=== PATIENT | female | born 1960 | race Caucasian/White ===

== ENCOUNTER 2018-01-27 23:45 | Emergency (ER) | payer OTHER ==
--- NOTE | 2018-01-28 00:10 | EDPHY ---
H & P Stated Complaint: "FEEL LIKE I'M GOING TO PASS OUT" DIZZY Time Seen by Provider: 01/28/18 00:10 HPI/ROS: HPI CHIEF COMPLAINT: Dizziness now resolved HISTORY OF PRESENT ILLNESS: Very pleasant 57-year-old female, denies having any significant medical history presents emergency room with dizziness. She describes the room spinning. This started at 8:30 a.m. It is now 12 30 at night. She states she was sitting at the computer playing [employer] when this started. Did not have any chest pain or shortness of breath. She did vomit 1 time. The symptoms have since resolved. She states it resolved approximately half an hour ago. It was worse when she went from a lying down to seated position. Denies headache or neck pain, denies double vision, denies visual disturbance, denies chest pain or shortness of breath. Did have nausea with it. She has never had this before. Past Medical History: Denies significant medical history except for thyroid disease Past Surgical History: Denies recent surgical history Social History: Denies drugs alcohol tobacco. Family History: Noncontributory ROS REVIEW OF SYSTEMS: 10 Systems were reviewed and negative with the exception of the elements mentioned in the history of present illness. Exam Constitutional nontoxic no acute distress, triage nursing summary reviewed, vital signs reviewed, awake/alert. Eyes normal conjunctivae and sclera, EOMI, PERRLA. HENT normal inspection, atraumatic, moist mucus membranes, no epistaxis, neck supple/ no meningismus, no raccoon eyes. Respiratory clear to auscultation bilaterally, normal breath sounds, no respiratory distress, no wheezing. Cardiovascular rate normal, regular rhythm, no murmur, no edema, distal pulses normal. Gastrointestinal soft, non-tender, no rebound, no guarding, normal bowel sounds, no distension, no pulsatile mass. Genitourinary no CVA tenderness. Musculoskeletal no midline vertebral tenderness, full range of motion, no calf swelling, no tenderness of extremities, no meningismus, good pulses, neurovascularly intact. Skin pink, warm, & dry, no rash, skin atraumatic. Neurologic unremarkable neurological exam, awake, alert and oriented x 3, AAOx3 , moves all 4 extremities equally, motor intact, sensory intact, CN II-XII intact, normal cerebellar, normal vision, normal speech. Psychiatric normal mood/affect. Heme/Lymph/Immune no lymphadenopathy. Differential Diagnosis: Includes but is not limited to in a particular order vertigo, dizziness, dehydration, electrolyte disturbance, cardiac arrhythmia, ACS, stroke Medical Decision Making: Plan for this patient IV establishment IV fluid bolus , EKG, troponin, chest x-ray, CT scan head without contrast, electrolytes, urinalysis, and re-evaluate. Re-evaluation: EKG interpretation by me on record in [employer] system. Impression time of EKG 0015: Sinus rhythm rate of 84. No signs of cardiac arrhythmia acute ischemia. Intervals are appropriate. Troponin 0.01. EKG nonischemic. ED x-ray chest one view negative for acute cardiopulmonary disease. Image interpreted by myself. CT scan head without contrast called to me by Dr. Lynn. Reason for CT scan head without contrast dizziness. Negative for acute bleed. EKG interpretation by me on record in [employer] system. Impression time of repeat EKG 4 6:00 a.m., sinus rhythm rate of 85 without any signs of ischemia. No ST elevation no ST depression or T-wave abnormalities. Patient re-evaluated 4:00 a.m.: She is resting comfortably she denies any complaints, denies dizziness, denies chest pain, denies shortness of breath, denies room spinning. States she feels well. She is eager to be discharged requesting discharge. Repeat troponin 0.01. Unchanged from previous troponin. 0421: Patient ambulated well throughout the emergency room without any difficulty. Stable gait. Denies dizziness. Denies chest pain or shortness of breath eager for discharge home. Return precautions discussed. Prescription for meclizine. Return if worsening dizziness, headache, vomiting or not doing well she understands. Source: Patient - Personal History Current Tetanus Diphtheria and Acellular Pertussis (TDAP): Yes - Medical/Surgical History Hx Asthma: No Hx Chronic Respiratory Disease: No Hx Diabetes: No Hx Cardiac Disease: No Hx Renal Disease: No Hx Cirrhosis: No Hx Alcoholism: No Hx HIV/AIDS: No Hx Splenectomy or Spleen Trauma: No Other PMH: THYROID REMOVAL - Social History Smoking Status: Never smoked Constitutional: Initial Vital Signs Heart Rate 94 01/27/18 23:50 Respiratory Rate 16 01/27/18 23:50 Blood Pressure 134/89 H 01/27/18 23:50 O2 Sat (%) 97 01/27/18 23:50 O2 Delivery Mode Room Air Allergies/Adverse Reactions: No Known Allergies Allergy (Verified 01/27/18 23:52) Home Medications: Medication Instructions Recorded [place] Thyroid 60 MG (*) 1 tab BID 03/24/16 Multivitamin (*) 1 tab DAILY 03/24/16 Meclizine HCl [Meclizine HCl 25 mg 25 mg PO BID #14 tab 01/28/18 (RX,OTC)] Medical Decision Making - Data Points Laboratory Results: Laboratory Results 01/28/18 00:09 01/28/18 00:09 01/28/18 01/28/18 01/28/18 04:06 01:45 00:13 WBC RBC Hgb Hct MCV MCH MCHC RDW Plt Count MPV Neut % (Auto) Lymph % (Auto) [place] % (Auto) Eos % (Auto) Baso % (Auto) Nucleat RBC Rel Count Absolute Neuts (auto) Absolute Lymphs (auto) Absolute Monos (auto) Absolute Eos (auto) Absolute Basos (auto) Absolute Nucleated RBC Immature Gran % Immature Gran # PT INR APTT Sodium Potassium Chloride Carbon Dioxide Anion Gap BUN Creatinine Estimated GFR Glucose Calcium Magnesium Total Bilirubin Conjugated Bilirubin Unconjugated Bilirubin AST ALT Alkaline Phosphatase POC Troponin I 0.01 ng/mL ng/mL 0.01 ng/mL ng/mL (0.00-0.08) (0.00-0.08) Total Protein Albumin Lipase Urine Color YELLOW Urine Appearance HAZY Urine pH 5.0 (5.0-7.5) Ur Specific [place] 1.027 (1.002-1.030) Urine Protein NEGATIVE (NEGATIVE) Urine Ketones TRACE H (NEGATIVE) Urine Blood NEGATIVE (NEGATIVE) Urine Nitrate NEGATIVE (NEGATIVE) Urine Bilirubin NEGATIVE (NEGATIVE) Urine Urobilinogen 4.0 EU H EU (0.2-1.0) Ur Leukocyte Esterase NEGATIVE (NEGATIVE) Urine Glucose NEGATIVE (NEGATIVE) 01/28/18 01/28/18 01/28/18 00:09 00:09 00:09 WBC RBC Hgb Hct MCV MCH MCHC RDW Plt Count MPV Neut % (Auto) Lymph % (Auto) [place] % (Auto) Eos % (Auto) Baso % (Auto) Nucleat RBC Rel Count Absolute Neuts (auto) Absolute Lymphs (auto) Absolute Monos (auto) Absolute Eos (auto) Absolute Basos (auto) Absolute Nucleated RBC Immature Gran % Immature Gran # PT 12.4 SEC SEC (12.0-15.0) INR 0.90 (0.83-1.16) APTT 24.3 SEC SEC (23.0-38.0) Sodium 142 mEq/L mEq/L (135-145) Potassium 3.8 mEq/L mEq/L (3.3-5.0) Chloride 107 mEq/L mEq/L (97-110) Carbon Dioxide 23 mEq/l mEq/l (22-31) Anion Gap 12 mEq/L mEq/L (8-16) BUN 14 mg/dL mg/dL (7-23) Creatinine 0.6 mg/dL mg/dL (0.6-1.0) Estimated GFR > 60 Glucose 133 mg/dL H mg/dL (70-100) Calcium 9.4 mg/dL mg/dL (8.5-10.4) Magnesium 1.8 mg/dL mg/dL (1.6-2.3) Total Bilirubin 0.2 mg/dL mg/dL (0.1-1.4) Conjugated Bilirubin 0.0 mg/dL mg/dL (0.0-0.5) Unconjugated Bilirubin 0.2 mg/dL mg/dL (0.0-1.1) AST 32 IU/L IU/L (14-46) ALT 38 IU/L IU/L (9-52) Alkaline Phosphatase 87 IU/L IU/L (38-126) POC Troponin I Total Protein 7.3 g/dL g/dL (6.3-8.2) Albumin 4.0 g/dL g/dL (3.5-5.0) Lipase 293 IU/L IU/L (23-300) Urine Color Urine Appearance Urine pH Ur Specific [place] Urine Protein Urine Ketones Urine Blood Urine Nitrate Urine Bilirubin Urine Urobilinogen Ur Leukocyte Esterase Urine Glucose 01/28/18 00:09 WBC 6.01 10^3/uL 10^3/uL (3.80-9.50) RBC 4.34 10^6/uL 10^6/uL (4.18-5.33) Hgb 11.3 g/dL L g/dL (12.6-16.3) Hct 34.7 % L % (38.0-47.0) MCV 80.0 fL L fL (81.5-99.8) MCH 26.0 pg L pg (27.9-34.1) MCHC 32.6 g/dL g/dL (32.4-36.7) RDW 17.1 % H % (11.5-15.2) Plt Count 348 10^3/uL 10^3/uL (150-400) MPV 9.8 fL fL (8.7-11.7) Neut % (Auto) 39.1 % L % (39.3-74.2) Lymph % (Auto) 44.3 % % (15.0-45.0) [place] % (Auto) 9.8 % % (4.5-13.0) Eos % (Auto) 5.8 % % (0.6-7.6) Baso % (Auto) 0.8 % % (0.3-1.7) Nucleat RBC Rel Count 0.0 % % (0.0-0.2) Absolute Neuts (auto) 2.35 10^3/uL 10^3/uL (1.70-6.50) Absolute Lymphs (auto) 2.66 10^3/uL 10^3/uL (1.00-3.00) Absolute Monos (auto) 0.59 10^3/uL 10^3/uL (0.30-0.80) Absolute Eos (auto) 0.35 10^3/uL 10^3/uL (0.03-0.40) Absolute Basos (auto) 0.05 10^3/uL 10^3/uL (0.02-0.10) Absolute Nucleated RBC 0.00 10^3/uL 10^3/uL (0-0.01) Immature Gran % 0.2 % % (0.0-1.1) Immature Gran # 0.01 10^3/uL 10^3/uL (0.00-0.10) PT INR APTT Sodium Potassium Chloride Carbon Dioxide Anion Gap BUN Creatinine Estimated GFR Glucose Calcium Magnesium Total Bilirubin Conjugated Bilirubin Unconjugated Bilirubin AST ALT Alkaline Phosphatase POC Troponin I Total Protein Albumin Lipase Urine Color Urine Appearance Urine pH Ur Specific [place] Urine Protein Urine Ketones Urine Blood Urine Nitrate Urine Bilirubin Urine Urobilinogen Ur Leukocyte Esterase Urine Glucose Medications Given: Discontinued Medications Sodium Chloride (Ns) 1,000 mls @ 0 mls/hr IV EDNOW ONE; Wide Open PRN Reason: Protocol Stop: 01/28/18 00:24 Last Admin: 01/28/18 00:29 Dose: 1,000 mls Point of Care Test Results: Chemistry 01/28/18 01/28/18 04:06 00:13 POC Troponin I 0.01 ng/mL ng/mL 0.01 ng/mL ng/mL (0.00-0.08) (0.00-0.08) Departure - Departure Disposition: Home, Routine, Self-Care Clinical Impression: Dizziness Condition: Good Instructions: Vertigo (ED), Dizziness (ED) Additional Instructions: 1. Please return to the emergency room if you develop worsening dizziness, headache, vomiting or not doing well. Referrals: NONE *PRIMARY CARE P,. [Primary Care Provider] - As per Instructions Prescriptions: Meclizine HCl [Meclizine HCl 25 mg (RX,OTC)] 25 mg PO BID #14 tab
[2018-01-28 00:18] LABS: PLATELET COUNT 348 10^3/uL (150-400)
[2018-01-28] MEDS ORDERED: NS 1,000 ML IV ONE (00:23)
[2018-01-28 00:39] LABS: INR 0.9 (0.83-1.16); PROTIME(PATIENT) 12.4 SEC (12.0-15.0)
[2018-01-28] MEDS ORDERED: ONDANSETRON 4MG PREPACK#2 BTL TAKEHOME ONE ×2 (04:27)
[2018-01-28 04:40] VITALS: BP 136/98
--- NOTE | 2018-01-28 05:47 | CPEKG ---
Test Reason : OPEN Blood Pressure : / mmHG Vent. Rate : 084 BPM Atrial Rate : 084 BPM P-R Int : 182 ms QRS Dur : 111 ms QT Int : 399 ms P-R-T Axes : 043 003 052 degrees QTc Int : 472 ms Sinus rhythm Confirmed by Kraig Hunter ([id number]) on 01/28/2018 5:47:05 AM Referred By: Confirmed By:Kraig Hunter
--- NOTE | 2018-01-28 05:48 | CPEKG ---
Test Reason : OPEN Blood Pressure : / mmHG Vent. Rate : 085 BPM Atrial Rate : 085 BPM P-R Int : 187 ms QRS Dur : 105 ms QT Int : 400 ms P-R-T Axes : 039 004 048 degrees QTc Int : 476 ms Sinus rhythm Confirmed by Kraig Hunter ([id number]) on 01/28/2018 5:47:06 AM Referred By: Confirmed By:Kraig Hunter
== END 2018-01-28 04:43 | disposition home or self-care (01) ==
DX: R42 Dizziness and giddiness (principal); E86.9 Volume depletion, unspecified
CPT/HCPCS: 84484-PO